=== PATIENT | female | born 1970 | race Caucasian/White ===

== ENCOUNTER 2017-07-01 13:07 | Outpatient (CLI) | payer OTHER ==
--- NOTE | 2017-07-01 16:34 | Cat Scan Report ---
FINAL REPORT PROCEDURE: CT ABDOMEN PELVIS WO CON TECHNIQUE: Computerized axial tomography of the abdomen and pelvis was performed without intravenous contrast. This study is performed without intravascular contrast material and its sensitivity for abdominal and pelvic pathology, including neoplasms, inflammation, abscess, free fluid, thrombosis, arterial dissection and infarction, is reduced compared with a contrast enhanced study. HISTORY: RUQ ABDOMINAL PAIN COMPARISON: No prior studies are available for comparison. FINDINGS: Liver, spleen, and gallbladder display no abnormalities. The pancreas appears normal. The adrenal glands and abdominal aorta are normal in size. No right renal abnormality is seen. Tiny angiomyolipoma is seen in the left kidney. Bladder appears normal. No adnexal masses are seen. There is no free pelvic fluid. A phlebolith is seen in the left side of the pelvis. Normal appendix is seen. No evidence of bowel obstruction is seen. There may be mild right-sided constipation. Focal wall thickening is not excluded in the fundus of the stomach but this may be layering food. Upper GI series may be useful if pain symptoms persist. IMPRESSION: Likely mild right-sided constipation is seen. Wall of the fundus of the stomach appears possibly thickened. This could be artifactual, due to layering food particles. Upper GI series may be useful if pain symptoms persist.
== END 2017-07-01 13:08 | disposition home or self-care (01) ==
LOC: CT 13:07
PROVIDERS: ATTEND Nurse Practitioner Family
DX: D17.71 Benign lipomatous neoplasm of kidney (principal)
CPT/HCPCS: 74176

== ENCOUNTER 2018-12-18 13:49 | Outpatient (CLI) | payer OTHER | END 2018-12-18 13:50 | disposition home or self-care (01) | LOC: LABHHL 13:49 | PROVIDERS: ATTEND Surgery | DX: N63.22 Unspecified lump in the left breast, upper inner quadrant (principal) | CPT/HCPCS: 88305; 88341; 88342 ==